=== PATIENT | male | born 1965 | race Caucasian/White ===

== ENCOUNTER 2023-10-01 12:42 | Emergency (ER) | payer OTHER ==
[2023-10-01 12:56] VITALS: BP 160/99; PULSE 79; RESP 18; TEMP 98.5; BMI 23.0
[2023-10-01] MEDS ORDERED: IBUPROFEN 600 MG TABLET (FP) PO ONE (13:24)
== END 2023-10-01 16:18 | disposition home or self-care (01) ==
LOC: FER 12:42
DX: R10.31 Right lower quadrant pain (principal); N50.811 Right testicular pain
CPT/HCPCS: 76870-TC; 81003; 82962; 87086; 99284-25